=== PATIENT | female | born 1985 | race Hispanic/Latino ===

== ENCOUNTER 2018-03-20 19:15 | Emergency (ER) | payer OTHER ==
[2018-03-20] MEDS ORDERED: KETOROLAC 30 MG/ML INJ ONE (20:05)
--- NOTE | 2018-03-20 20:39 | EDPHYS ---
Physician Documentation [facility] Name: Ramonita Becerra Age: 33 yrs Sex: Female : 1985 Arrival Date: 03/20/2018 Time: 19:17 Bed 13 Private MD: CRYSTAL Physician Dayton Nevarez HPI: 03/20 19:45 This 33 yrs old Female presents to ER via Ambulatory with complaints of Knee cp Pain. 19:45 The patient presents with pain, that is acute. cp 19:45 The complaints affect the medial aspect of right knee. Context: resulted from an cp unknown cause, the patient can fully bear weight, the patient is able to ambulate, with moderate difficulty. Onset: The symptoms/episode began/occurred 2 week(s) ago. Associated signs and symptoms: Pertinent negatives calf tenderness, fever, numbness, warmth, shortness of breath. Treatment prior to arrival includes: over the counter medications, NSAIDS. The patient has been recently seen by a physician: Dr. Lee with similar presenting complaints, lab tests were done, X-rays were performed, and was referred to a specialist. 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 - Social history:: Smoking status: Patient/guardian denies using tobacco. - Ebola Screening: : Patient negative for fever greater than or equal to 101.5 degrees Fahrenheit, and additional compatible Ebola Virus Disease symptoms Patient denies exposure to infectious person Patient denies travel to an Ebola-affected area in the 21 days before illness onset No symptoms or risks identified at this time. ROS: 19:50 Constitutional: Negative for body aches, chills, fever, poor PO intake. cp 19:50 Eyes: Negative for injury, pain, redness, and discharge. cp 19:50 ENT: Negative for drainage from ear(s), ear pain, sore throat, difficulty swallowing, difficulty handling secretions. 19:50 Cardiovascular: Negative for chest pain, edema, palpitations. 19:50 Respiratory: Negative for cough, shortness of breath, wheezing. 19:50 Abdomen/GI: Negative for abdominal pain, nausea, vomiting, and diarrhea. 19:50 MS/extremity: Positive for pain, tenderness, of the medial aspect right knee, Negative for injury or acute deformity, decreased range of motion, paresthesias. 19:50 Skin: Negative for cellulitis, rash. 19:50 All other systems are negative. Exam: 19:57 Constitutional: The patient appears in no acute distress, alert, awake, non-toxic, well cp developed, well nourished. 19:57 Head/Face: Normocephalic, atraumatic. cp 19:57 Eyes: Periorbital structures: appear normal, Conjunctiva: normal, no exudate, no injection, Sclera: no appreciated abnormality, Lids and lashes: appear normal, bilaterally. 19:57 ENT: External ear(s): are unremarkable, Nose: is normal, Mouth: is normal, Posterior pharynx: is normal, airway is patent. 19:57 Neck: ROM/movement: is normal, is supple, without pain, no range of motions limitations, no nuchal rigidity. 19:57 Chest/axilla: Inspection: normal. 19:57 Cardiovascular: Rate: normal. 19:57 Respiratory: the patient does not display signs of respiratory distress, Respirations: normal, no use of accessory muscles, no retractions, no splinting, no tachypnea, labored breathing, is not present. 19:57 Abdomen/GI: Exam negative for discomfort, distension, guarding, Inspection: abdomen appears normal. 19:57 Back: pain, is absent, ROM is normal. 19:57 Musculoskeletal/extremity: Extremities: grossly normal except: noted in the medial aspect right knee distal MCL: pain, swelling, tenderness, There is no evidence of decreased ROM. 19:57 Skin: cellulitis, is not appreciated, no rash present. Vital Signs: 19:27 BP 116 / 68; Pulse 87; Resp 19; Temp 98.7; Pulse Ox 100% on R/A; Weight 74.84 kg; aj Height 5 ft. 2 in. (157.48 cm); 20:41 BP 106 / 80; Pulse 75; Resp 18; Temp 98(O); Pulse Ox 99% on R/A; ea 19:27 Body Mass Index 30.18 (74.84 kg, 157.48 cm) Procedures: 20:40 Crutch training provided to patient and/or family. Return demonstration given. cp 20:40 Splinting: Splint applied to right knee using knee immobilizer, applied by nurse. cp Examined by me, post splint application: neurovascular intact, Patient tolerated well. MDM: 19:34 Patient medically screened. [facility] 20:00 Differential diagnosis: dislocation, closed fracture, tendonitis, septic joint, cp cellulitis, DVT. 20:37 Data reviewed: vital signs, nurses notes. cp 20:37 Refusal of service: The patient/guardian displays adequate decision making capability cp and despite a detailed discussion of alternatives, benefits, risks, and consequences refuses: US to r/o DVT. ED course: VSS. Recommend RICE and f/u with ortho. 03/20 19:57 Order name: Knee Immobilizer; Complete Time: 20:13 cp 03/20 19:57 Order name: Crutches; Complete Time: 20:13 cp Administered Medications: 20:00 Drug: TORadol 60 mg Route: IM; Site: right deltoid; ea 20:41 Follow up: Response: No adverse reaction; Pain is decreased ea Disposition: 03/21 07:18 Co-signature as Attending Physician, Dayton Nevarez MD I agree with the assessment and [facility] plan of care. Disposition: 03/20/18 20:38 Discharged to Home. Impression: Pain in right knee. - Condition is Stable. - Discharge Instructions: Knee Immobilizer, Knee Pain. - Prescriptions for Anaprox DS 550 mg Oral Tablet - take 1 tablet by ORAL route every 12 hours As needed; 20 tablet. Tramadol 50 mg Oral Tablet - take 1 tablet by ORAL route every 8 hours as needed; 12 tablet. - Medication Reconciliation Form, Thank You Letter, Antibiotic Education, Prescription Opioid Use, Work release form form. - Follow up: Jj Bobo MD; When: 2 - 3 days; Reason: Recheck today's complaints. - Problem is an ongoing problem. - Symptoms have improved. Signatures: Ashia Chapa RN RN aj Anderson, Corey, MD MD cha Page, Corey, PA PA cp Antunez, Elena, RN RN ea Corrections: (The following items were deleted from the chart) 03/20 20:52 20:38 03/20/2018 20:38 Discharged to Home. Impression: Pain in right knee. Condition is ea Stable. Forms are Medication Reconciliation Form, Thank You Letter, Antibiotic Education, Prescription Opioid Use. Follow up: Jj Bobo; When: 2 - 3 days; Reason: Recheck today's complaints. Problem is an ongoing problem. Symptoms have improved. cp
--- NOTE | 2018-03-20 20:39 | ER ---
Nurse's Notes [facility] Name: Ramonita Becerra Age: 33 yrs Sex: Female : 1985 Arrival Date: 03/20/2018 Time: 19:17 Bed 13 Private MD: Diagnosis: Pain in right knee Presentation: 03/20 19:26 Presenting complaint: Patient states: Right knee pain for 2 weeks. Seen by PCP on aj Thursday and had X ray and labs done. Appointment with ortho on 04/01. Transition of care: patient was not received from another setting of care. Onset of symptoms was March 06, 2018. Risk Assessment: Do you want to hurt yourself or someone else? Patient reports no desire to harm self or others. Initial Sepsis Screen: Does the patient meet any 2 criteria? No. Patient's initial sepsis screen is negative. Does the patient have a suspected source of infection? No. Patient's initial sepsis screen is negative. Care prior to arrival: None. 19:26 Method Of Arrival: Ambulatory 19:26 Acuity: CHANNING 4 Triage Assessment: 19:27 General: Appears in no apparent distress. uncomfortable, Behavior is calm, cooperative, aj appropriate for age. Pain: Complains of pain in right knee. Neuro: Level of Consciousness is awake, alert, obeys commands, Oriented to person, place, time, situation, Appropriate for age. Respiratory: Airway is patent Respiratory effort is even, unlabored, Respiratory pattern is regular, symmetrical. Derm: Skin is intact, is healthy with good turgor, Skin is pink, warm \T\ dry. normal. Musculoskeletal: Reports pain in right knee. 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 - Social history:: Smoking status: Patient/guardian denies using tobacco. - Ebola Screening: : Patient negative for fever greater than or equal to 101.5 degrees Fahrenheit, and additional compatible Ebola Virus Disease symptoms Patient denies exposure to infectious person Patient denies travel to an Ebola-affected area in the 21 days before illness onset No symptoms or risks identified at this time. Screenin:50 Abuse screen: Denies threats or abuse. Nutritional screening: No deficits noted. ea Tuberculosis screening: No symptoms or risk factors identified. Fall Risk None identified. Assessment: 19:50 General: Appears uncomfortable, Behavior is calm, cooperative, appropriate for age. ea Pain: Complains of pain in right knee Pain currently is 8 out of 10 on a pain scale. Quality of pain is described as aching. Neuro: Level of Consciousness is awake, alert, obeys commands, Oriented to person, place, time, situation. Cardiovascular: Patient's skin is warm and dry. Respiratory: Airway is patent Respiratory effort is even, unlabored, Respiratory pattern is regular, symmetrical. GI: No signs and/or symptoms were reported involving the gastrointestinal system. : No signs and/or symptoms were reported regarding the genitourinary system. Derm: Skin is pink, warm \T\ dry. 20:50 Reassessment: Patient and/or family updated on plan of care and expected duration. Pain ea level reassessed. Patient is alert, oriented x 3, equal unlabored respirations, skin warm/dry/pink. Discharge instructions given to patient, verbalized the understanding of instruction. Patient states symptoms have improved. Vital Signs: 19:27 BP 116 / 68; Pulse 87; Resp 19; Temp 98.7; Pulse Ox 100% on R/A; Weight 74.84 kg; aj Height 5 ft. 2 in. (157.48 cm); 20:41 BP 106 / 80; Pulse 75; Resp 18; Temp 98(O); Pulse Ox 99% on R/A; ea 19:27 Body Mass Index 30.18 (74.84 kg, 157.48 cm) ED Course: 19:17 Patient arrived in ED. am2 19:27 Triage completed. aj 19:27 Arm band placed on left wrist. Patient placed in an exam room. aj 19:33 Dayton Waller PA is PHCP. cp 19:34 Dayton Nevarez MD is Attending Physician. prerna 19:34 Dayton Nevarez MD is Attending Physician. cp 19:43 Tarah Christian, PRINCESS is Primary Nurse. ea 20:32 Patient has correct armband on for positive identification. Bed in low position. Call ea light in reach. Side rails up X2. 20:38 Jj Bobo MD is Referral Physician. cp 20:41 No provider procedures requiring assistance completed. Patient did not have IV access ea during this emergency room visit. Administered Medications: 20:00 Drug: TORadol 60 mg Route: IM; Site: right deltoid; ea 20:41 Follow up: Response: No adverse reaction; Pain is decreased ea Outcome: 20:38 Discharge ordered by MD. cp 20:51 Discharged to home with crutches, with significant other. ea 20:51 Condition: improved 20:51 Discharge instructions given to patient, Instructed on discharge instructions, follow up and referral plans. medication usage, Demonstrated understanding of instructions, follow-up care, medications, Prescriptions given X 2. 20:52 Patient left the ED. ea Signatures: Ashia Chapa, RN RN Dayton Salguero MD MD cha Page, Corey, PA PA Ashia Rivers am2 Tarah Christian RN RN janet
[2018-03-20 21:03] VITALS: BP 106/80; TEMP 98; O2SAT 99
== END 2018-03-20 20:52 | disposition home or self-care (01) ==
LOC: ER 19:15
DX: M25.561 Pain in right knee (principal); Z91.040 Latex allergy status; Z91.048 Other nonmedicinal substance allergy status
CPT/HCPCS: 96372; 99283

== ENCOUNTER 2020-01-02 18:04 | Observation (INO) | payer BC ==
[2020-01-02 20:51] LABS: Absolute Lymphocytes (CBC) 1.9 K/uL (0.7-4.9); Basophils % 0.2 % (0-1.3); Hematocrit 35.9 % (36.0-45.0); Lymphocytes % 22.5 % (15.3-44.8); MPV 8.8 fL (7.6-11.3); RBC Red Blood Cell Count 4.21 M/uL (3.86-4.86)
[2020-01-02] MEDS ORDERED: ONDANSETRON 4 MG/2 ML VIAL ONE (20:53)
[2020-01-02] MEDS ORDERED: MORPHINE 4 MG/ML SYR ONE (20:53)
[2020-01-02] MEDS ORDERED: NA CHLORIDE 0.9% 1,000 ML ONE (20:53)
[2020-01-02] MEDS ORDERED: FAMOTIDINE 20 MG/2 ML VIAL IV ONE (20:53)
[2020-01-02 21:11] LABS: ALT/SGPT 25 U/L (12-78); AST/SGOT 14 U/L (15-37); Albumin 3.4 g/dL (3.4-5.0); Alkaline Phosphatase 111 U/L (45-117); BUN Blood Urea Nitrogen 10 mg/dL (7-18); Bicarbonate 26 mmol/L (21-32); Bilirubin Direct < 0.1 mg/dL (0-0.2); Bilirubin Total 0.3 mg/dL (0.2-1.0); Glucose Level 93 mg/dL (74-106); Lipase 61 U/L (73-393); Protein, Total 7.9 g/dL (6.4-8.2); Sodium Level 139 mmol/L (136-145)
[2020-01-02 22:03] LABS: Urine Blood TRACE (NEG); Urine Glucose NEGATIVE (NEG); Urine Protein NEGATIVE (NEG); Urine Specific Gravity 1.015 (1.005-1.030)
[2020-01-02] MEDS ORDERED: PIPER/TAZO/NS 3.375gm 3.375 GM/100 ML BAG ONE (22:45)
--- NOTE | 2020-01-02 22:47 | EDPHYS ---
Physician Documentation [facility] Name: Ramonita Becerra Age: 34 yrs Sex: Female : 1985 Arrival Date: 01/02/2020 Time: 18:06 Bed 26 Private MD: ED Physician Jimmie Lucero HPI: 01/01 21:05 This 34 yrs old Female presents to ER via Ambulatory with complaints of mh7 Abdominal Pain. 21:05 The patient presents with abdominal pain in the left lower quadrant. Onset: The mh7 symptoms/episode began/occurred yesterday. The symptoms radiate to the left flank. Associated signs and symptoms: Pertinent positives: nausea and vomiting, Pertinent negatives: anorexia, blood in stools, chest pain, constipation, diarrhea, dysuria, fever, headache, hematuria, palpitations, shortness of breath, vaginal discharge, vomiting blood. The symptoms are described as intermittent, vague, waxing/waning. Modifying factors: The symptoms are alleviated by nothing, the symptoms are aggravated by nothing. Severity of pain: At its worst the pain was moderate today, in the emergency department the pain has improved moderately. 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 - Social history:: Smoking status: Patient denies any tobacco usage or history of. Patient/guardian denies using alcohol, street drugs, tobacco products. ROS: 21:05 Constitutional: Negative for fever, chills, and weight loss, Eyes: Negative for injury, mh7 pain, redness, and discharge, ENT: Negative for injury, pain, and discharge, Neck: Negative for injury, pain, and swelling, Cardiovascular: Negative for chest pain, palpitations, and edema, Respiratory: Negative for shortness of breath, cough, wheezing, and pleuritic chest pain, Back: Negative for injury and pain, : Negative for injury, bleeding, discharge, and swelling, MS/Extremity: Negative for injury and deformity, Skin: Negative for injury, rash, and discoloration, Neuro: Negative for headache, weakness, numbness, tingling, and seizure, Psych: Negative for depression, anxiety, suicide ideation, homicidal ideation, and hallucinations, Allergy/Immunology: Negative for hives, rash, and allergies, Endocrine: Negative for neck swelling, polydipsia, polyuria, polyphagia, and marked weight changes, Hematologic/Lymphatic: Negative for swollen nodes, abnormal bleeding, and unusual bruising. Exam: 21:05 Constitutional: This is a well developed, well nourished patient who is awake, alert, mh7 and in no acute distress. Head/Face: Normocephalic, atraumatic. Neck: Trachea midline, no thyromegaly or masses palpated, and no cervical lymphadenopathy. Supple, full range of motion without nuchal rigidity, or vertebral point tenderness. No Meningismus. Chest/axilla: Normal chest wall appearance and motion. Nontender with no deformity. No lesions are appreciated. Cardiovascular: Regular rate and rhythm with a normal S1 and S2. No gallops, murmurs, or rubs. Normal PMI, no JVD. No pulse deficits. Respiratory: Lungs have equal breath sounds bilaterally, clear to auscultation and percussion. No rales, rhonchi or wheezes noted. No increased work of breathing, no retractions or nasal flaring. 21:05 Back: No spinal tenderness. No costovertebral tenderness. Full range of motion. Skin: Warm, dry with normal turgor. Normal color with no rashes, no lesions, and no evidence of cellulitis. MS/ Extremity: Pulses equal, no cyanosis. Neurovascular intact. Full, normal range of motion. Neuro: Awake and alert, GCS 15, oriented to person, place, time, and situation. Cranial nerves II-XII grossly intact. Motor strength 5/5 in all extremities. Sensory grossly intact. Cerebellar exam normal. Normal gait. Psych: Awake, alert, with orientation to person, place and time. Behavior, mood, and affect are within normal limits. 21:05 Abdomen/GI: Inspection: abdomen appears normal, Bowel sounds: normal, in all quadrants, Palpation: moderate abdominal tenderness, in the epigastric area and left lower quadrant, Rectal exam: the exam is deferred, because of patient request, Indicators: McBurney's point is not tender, Rivera's sign is negative, Rovsing's sign is negative, Obturator sign is negative, Psoas sign is negative, Liver: no appreciated palpable abnormalities, Hernia: not appreciated. Vital Signs: 18:32 BP 113 / 52; Pulse 95; Resp 17; Temp 98.7; Pulse Ox 100% ; Pain 5/10; ll1 21:00 BP 117 / 74; Pulse 88; Resp 17; Pulse Ox 100% on R/A; vc 22:00 BP 110 / 74; Pulse 81; Resp 16; Pulse Ox 100% on R/A; vc 23:00 BP 108 / 70; Pulse 81; Resp 18; Pulse Ox 100% on R/A; vc MDM: 20:24 Patient medically screened. [facility] 22:43 Differential diagnosis: appendicitis, non-specific abd pain, Ureterolithiasis, urinary mh7 tract infection. Data reviewed: vital signs, nurses notes, lab test result(s), CBC, electrolytes, urinalysis. Data interpreted: shelter monitor: rate is 95 beats/min, rhythm is normal sinus rhythm, regular, Interpretation: normal rate, normal rhythm, Pulse oximetry: on room air is 100 %. Interpretation: normal. Counseling: I had a detailed discussion with the patient and/or guardian regarding: the historical points, exam findings, and any diagnostic results supporting the discharge/admit diagnosis, lab results, radiology results. Response to treatment: the patient's symptoms have markedly improved after treatment. 01/01 20:26 Order name: Basic Metabolic Panel; Complete Time: 21:17 [facility] 01/01 20:26 Order name: CBC with Diff; Complete Time: 21:17 [facility] 01/01 20:26 Order name: Hepatic Function; Complete Time: 21: [facility] 01/01 20:26 Order name: Lipase; Complete Time: 21:17 [facility] 01/01 22:00 Order name: Urine Dipstick--Ancillary (enter results); Complete Time: 22:14 [facility] 01/01 22:00 Order name: Urine --Ancillary (enter results); Complete Time: 22:14 [facility] 01/01 21:18 Order name: CT Abd/Pelvis - IV Contrast Only [facility] 01/02 05:15 Order name: CBC with Automated Diff; Complete Time: 08:05 [facility] 01/02 05:34 Order name: Basic Metabolic Panel; Complete Time: 08:05 [facility] 01/02 05:34 Order name: Lipase; Complete Time: 08:05 [facility] 01/02 08:16 Order name: Lipase [facility] 01/02 09:02 Order name: CORONAVIRUS [facility] 01/02 09:07 Order name: Lipase [facility] 01/01 20:26 Order name: IV Saline Lock; Complete Time: 20:53 [facility] 01/01 20:26 Order name: Labs collected and sent; Complete Time: 20:53 [facility] 01/01 20:26 Order name: Urine Dipstick-Ancillary (obtain specimen); Complete Time: 22:06 [facility] 01/01 20:26 Order name: Urine Test (obtain specimen); Complete Time: 22:06 7 Administered Medications: 20:52 Drug: Zofran (Ondansetron) 4 mg Route: IVP; Site: left antecubital; vc 22:30 Follow up: Response: No adverse reaction vc 20:52 Drug: NS 0.9% 1000 ml Route: IV; Rate: 1000 ml; Site: left antecubital; vc 22:00 Follow up: IV Status: Completed infusion; IV Intake: 1000ml vc 20:52 Drug: Pepcid 20 mg Route: IVP; Site: left antecubital; vc 22:30 Follow up: Response: No adverse reaction vc 20:53 Drug: morphine 4 mg Route: IVP; Site: left antecubital; vc 22:30 Follow up: Response: No adverse reaction vc 23:10 Drug: Zosyn 3.375 grams Route: IVPB; Infused Over: 60 mins; Site: left antecubital; vc 23:30 Follow up: IV Status: Completed infusion; IV Intake: 100ml vc Disposition: 01/02/20 22:46 Hospitalization ordered by Huber Lee for Inpatient Admission. Preliminary diagnosis is Acut Appendicitis. - Bed requested for [facility] ER HOLD. - Status is Inpatient Admission. ss - Condition is Stable. - Problem is new. - Symptoms have improved. Signatures: Dispatcher [employer] Dayton Bullock MD MD cha Smirch, Shelby, RN RN ss Garcia, Cindy, RN RN cg Sweetie Redman RN RN vc Lewis, Lynsay, RN RN ll1 Jimmie Lucero MD MD 7 Corrections: (The following items were deleted from the chart) 23:08 22:46 Hospitalization Ordered by Huber Lee MD for Inpatient Admission. Preliminary cg diagnosis is Acut Appendicitis. Bed requested for Telemetry/MedSurg (Inpatient). Status is Inpatient Admission. Condition is Stable. Problem is new. Symptoms have improved. mh7 01/02 09:58 01/01 23:08 01/02/2020 22:46 Hospitalization Ordered by A Jesus DIAZ for Inpatient ss Admission. Preliminary diagnosis is Acut Appendicitis. Bed requested for [facility] ER HOLD. Status is Inpatient Admission. Condition is Stable. Problem is new. Symptoms have improved. cg 01/02 10:04 09:58 01/02/2020 22:46 Hospitalization Ordered by A Jesus DIAZ for Inpatient Admission. ss Preliminary diagnosis is Acut Appendicitis. Bed requested for [facility] ER HOLD. Status is Inpatient Admission. Condition is Stable. Problem is new. Symptoms have improved. ss 12:14 10:04 01/02/2020 22:46 Hospitalization Ordered by A Jesus DIAZ for Inpatient Admission. ss Preliminary diagnosis is Acut Appendicitis. Bed requested for [facility] ER HOLD. Status is Inpatient Admission. Condition is Stable. Problem is new. Symptoms have improved. ss
--- NOTE | 2020-01-02 22:47 | ER ---
Nurse's Notes [facility] Name: Ramonita Becerra Age: 34 yrs Sex: Female : 1985 Arrival Date: 01/02/2020 Time: 18:06 Bed 26 Private MD: Diagnosis: Acut Appendicitis Presentation: 01/01 18:32 Chief complaint: Patient states: Lower abdominal pain since yesterday. 1 vomitus ll1 yesterday, none today. Fever 100 last night. No vaginal bleeding or discharge. Coronavirus screen: Proceed with normal triage. Patient denies a cough. Patient denies shortness of breath or difficulty breathing. Patient reports a measured and/or subjective temperature greater than 100.4F. Patient denies travel on a cruise ship or to a country the [facility] currently lists as an affected area. Patient denies contact with known and/or suspected case of COVID-19. Ebola Screen: Patient denies travel to an Ebola-affected area in the 21 days before illness onset. Initial Sepsis Screen: Does the patient meet any 2 criteria? HR > 90 bpm. No. Patient's initial sepsis screen is negative. Risk Assessment: Do you want to hurt yourself or someone else? Patient reports no desire to harm self or others. Onset of symptoms was January 01, 2020. 18:32 Method Of Arrival: Ambulatory ll1 18:32 Acuity: CHANNING 3 ll1 20:00 Initial Sepsis Screen: Does the patient have a suspected source of infection? No. vc Patient's initial sepsis screen is negative. [employer]: 20:35 LMP N/A - control method vc Historical: - Allergies: 18:34 Latex, Natural Rubber; ll1 - PMHx: 18:34 narcolepsy; Anxiety; ll1 - PSHx: 18:34 ; ll1 - Immunization history:: Flu vaccine is up to date. - Social history:: Smoking status: Patient denies any tobacco usage or history of. Patient/guardian denies using alcohol, street drugs, tobacco products. Screenin:00 Abuse screen: Denies threats or abuse. Nutritional screening: No deficits noted. vc Tuberculosis screening: No symptoms or risk factors identified. Fall Risk None identified. Assessment: 20:00 General: Appears in no apparent distress. uncomfortable, Behavior is calm, cooperative, vc appropriate for age. Pain: Complains of pain in epigastric area and left lower quadrant Pain radiates to back Pain currently is 5 out of 10 on a pain scale. Quality of pain is described as sharp, shooting, stabbing. Neuro: Level of Consciousness is awake, alert, obeys commands, Oriented to person, place, time, situation, Appropriate for age. Cardiovascular: Capillary refill < 3 seconds Patient's skin is warm and dry. Respiratory: Respiratory effort is even, unlabored, Respiratory pattern is regular, symmetrical. GI: Bowel sounds present X 4 quads. Abd is soft Abdomen is tender to palpation X 4 quads. : No signs and/or symptoms were reported regarding the genitourinary system. Derm: Skin is intact, is healthy with good turgor, Skin temperature is warm. Musculoskeletal: Circulation, motion, and sensation intact. Range of motion: intact in all extremities. 21:00 Reassessment: Patient appears in no apparent distress at this time. Patient and/or vc family updated on plan of care and expected duration. Pain level reassessed. Patient is alert, oriented x 3, equal unlabored respirations, skin warm/dry/pink. 22:00 Reassessment: Patient appears in no apparent distress at this time. Patient and/or vc family updated on plan of care and expected duration. Pain level reassessed. Patient is alert, oriented x 3, equal unlabored respirations, skin warm/dry/pink. 23:00 Reassessment: Patient appears in no apparent distress at this time. Patient and/or vc family updated on plan of care and expected duration. Pain level reassessed. Patient is alert, oriented x 3, equal unlabored respirations, skin warm/dry/pink. 23:45 Reassessment: Patient appears in no apparent distress at this time. Patient and/or vc family updated on plan of care and expected duration. Pain level reassessed. Patient is alert, oriented x 3, equal unlabored respirations, skin warm/dry/pink. Please see [employer] for further documentation. Patient states symptoms have improved. 01/02 09:45 Reassessment: Pt left to go to OR. Vital Signs: 01/01 18:32 BP 113 / 52; Pulse 95; Resp 17; Temp 98.7; Pulse Ox 100% ; Pain 5/10; ll1 21:00 BP 117 / 74; Pulse 88; Resp 17; Pulse Ox 100% on R/A; vc 22:00 BP 110 / 74; Pulse 81; Resp 16; Pulse Ox 100% on R/A; vc 23:00 BP 108 / 70; Pulse 81; Resp 18; Pulse Ox 100% on R/A; vc ED Course: 18:06 Patient arrived in ED. fj1 18:34 Triage completed. ll1 18:34 Arm band placed on Patient notified of wait time. ll1 19:59 Jimmie Lucero MD is Attending Physician. mh7 20:00 Patient has correct armband on for positive identification. Pulse ox on. NIBP on. vc 20:11 Sweetie Redman, PRINCESS is Primary Nurse. vc 21:46 CT Abd/Pelvis - IV Contrast Only In Process Unspecified. EDMS 21:50 Urine collected: clean catch specimen, clear, jacki colored. jp3 22:45 Huber Lee MD is Hospitalizing Provider. 7 23:45 No provider procedures requiring assistance completed. Patient admitted, IV remains in vc place. Administered Medications: 20:52 Drug: Zofran (Ondansetron) 4 mg Route: IVP; Site: left antecubital; vc 22:30 Follow up: Response: No adverse reaction vc 20:52 Drug: NS 0.9% 1000 ml Route: IV; Rate: 1000 ml; Site: left antecubital; vc 22:00 Follow up: IV Status: Completed infusion; IV Intake: 1000ml vc 20:52 Drug: Pepcid 20 mg Route: IVP; Site: left antecubital; vc 22:30 Follow up: Response: No adverse reaction vc 20:53 Drug: morphine 4 mg Route: IVP; Site: left antecubital; vc 22:30 Follow up: Response: No adverse reaction vc 23:10 Drug: Zosyn 3.375 grams Route: IVPB; Infused Over: 60 mins; Site: left antecubital; vc 23:30 Follow up: IV Status: Completed infusion; IV Intake: 100ml vc Intake: 22:00 IV: 1000ml; Total: 1000ml. vc 23:30 IV: 100ml; Total: 1100ml. vc Outcome: 22:46 Decision to Hospitalize by Provider. 7 23:45 Admitted to ER Hold. Please see [facility] for further documentation. vc 23:45 Condition: good 23:45 Instructed on the need for admit. 01/02 12:14 Patient left the ED. Signatures: Dispatcher [employer] EDAlexia Johnson, RN RN Cj Hayes jp3 Sweetie Redman RN RN Don Morrison1 Tami Moncada RN RN ah Lewis, Lynsay, RN RN ll1 Jimmie Lucero MD MD mh7
[2020-01-02] MEDS ORDERED: MORPHINE 4 MG/ML SYR IV PRN (22:49)
[2020-01-02] MEDS ORDERED: ONDANSETRON 4 MG/2 ML VIAL IV PRN (22:49)
[2020-01-02] MEDS ORDERED: D5 0.45 NS 1,000 ML IV SCH (23:00)
[2020-01-03] MEDS ORDERED: ONDANSETRON 4 MG/2 ML VIAL ONE ×3 (00:12→11:24)
[2020-01-03] MEDS ORDERED: MORPHINE 4 MG/ML SYR ONE (00:12)
[2020-01-03] MEDS ORDERED: D5 0.45 NS 1,000 ML IV ONE (00:13)
[2020-01-03] MEDS ORDERED: PIPER/TAZO/NS 3.375gm 3.375 GM/100 ML BAG IVPB SCH ×3 (01:00→10:00)
[2020-01-03 01:30] VITALS: BMI 32.9
[2020-01-03 05:14] LABS: Absolute Lymphocytes (CBC) 1.6 K/uL (0.7-4.9); Basophils % 0.2 % (0-1.3); Hematocrit 32.2 % (36.0-45.0); Lymphocytes % 20.8 % (15.3-44.8); MPV 8.8 fL (7.6-11.3); RBC Red Blood Cell Count 3.76 M/uL (3.86-4.86)
[2020-01-03 05:33] LABS: BUN Blood Urea Nitrogen 9 mg/dL (7-18); Bicarbonate 24 mmol/L (21-32); Glucose Level 126 mg/dL (74-106); Lipase 1744 U/L (73-393); Potassium 3.8 mmol/L (3.5-5.1); Sodium Level 140 mmol/L (136-145)
[2020-01-03] MEDS ORDERED: Ringers Lactate 1,000 ML IV ONE (09:16)
[2020-01-03] MEDS ORDERED: LIDOCAINE 2% MPF 5 ML VIAL ONE (09:36)
[2020-01-03] MEDS ORDERED: FENTANYL CITR 100 MCG/2 ML ONE (09:36)
[2020-01-03] MEDS ORDERED: dexAMETHasone 10 MG/ML VIAL ONE (09:36)
[2020-01-03] MEDS ORDERED: MIDAZOLAM HCL 2 MG/2 ML INJ ONE (09:36)
[2020-01-03] MEDS ORDERED: propofoL 200 MG/20 ML VIAL IV ONE (09:36)
[2020-01-03] MEDS ORDERED: ROCURONIUM 50 MG/5 ML VIAL IV ONE (09:37)
[2020-01-03] MEDS ORDERED: GLYCOPYRROLATE 0.2 MG/ML SYR ONE (10:29)
[2020-01-03] MEDS ORDERED: KETOROLAC 30 MG/ML INJ ONE (10:29)
[2020-01-03] MEDS ORDERED: NEOSTIGMINE 1 MG/ML -5 ML ONE (10:30)
--- NOTE | 2020-01-03 10:37 | PREOPCON ---
Date of Consultation: 01/02/2020 Reason For Consultation: Abdominal pain. History Of Present Illness: The patient is a 34-year-old female, who presents with 2-day history of periumbilical abdominal pain and lower abdominal pain associated nausea and vomiting on Thursday, anore javier, low-grade temperature on Thursday. No sore throat, runny nose, cough, headaches, or dizziness. N o chest pain. No diarrhea or constipation. No blood in her stool. No dysuria or hematuria. Last m enstrual period was 2-3 weeks ago was normal. Review of Systems: Otherwise unremarkable. Past Medical History: Negative. Past Surgical History: Negative. Allergies: NO ALLERGY. Social History: The patient does not smoke or drink. Family History: Significant for diabetes and hypertension. Physical Examination: Vital Signs: Stable. She is afebrile. General: She is awake, alert, and oriented x3. Head and Neck: Cranial nerves 2 through 12 grossly within normal limits. No neck masses. No JVD. Throat clear. Neck is supple. Chest: Clear. Heart: S1 and S2. Abdomen: Soft, nondistended. Positive bowel sounds. Positive lower left tenderness and rebound. N o rigidity or guarding. Most tender is just below the umbilicus to the left side. Extremities: Adequately perfused. Nontender. Neuro: Nonfocal. Laboratory Data: White count is normal. CT of the abdomen and pelvis reviewed with the radiologist. The patient does have abnormal location of the cecum at the midline with the appendix tilted toward the left side. There is an acute inflammation and no abscess. No perforation. No free air. There is also a 2.2 corpus luteum cyst on the ovary. Assessment: Acute appendicitis. Plan: Admit, n.p.o., IV fluid, IV antibiotic, to the OR for lap appy possible open. The patient und erstands the risks, benefits, alternatives and agrees to procedure. /MODL Voice ID: [id number] Report ID: [id number]
[2020-01-03] MEDS: HYDROMORPHONE HCL 1 MG/ML INJ ONE ×4 (11:13→11:55)
[2020-01-03 15:05] VITALS: TEMP 97.9
[2020-01-03 15:06] VITALS: O2SAT 100
[2020-01-03 15:07] VITALS: BP 118/68
--- NOTE | 2020-01-03 20:25 | OP ---
Date of Procedure: 01/03/2020 Surgeon: Tip Mane MD Preoperative Diagnosis: Acute appendicitis. Postoperative Diagnosis: Acute appendicitis. Procedure Performed: Laparoscopic appendectomy. Estimated Blood Loss: Minimal. Specimen: Appendix. Findings: As above. Anesthesia: General. Complications: None. Disposition: The patient tolerated the procedure in stable condition, taken to Recovery in good gene ral condition. Procedure In Detail: The patient was brought to the OR and placed in supine position. General anest hesia was begun. The patient was prepped and draped in usual sterile fashion. Marcaine 0.5% was inf iltrated locally. A 15 blade was used to make a 1 cm supraumbilical midline incision. Subcutaneous tissue was divided. Fascia was identified and divided. A #1 Vicryl stay suture was placed. Periton eal cavity was entered with blunt dissection. A 12 mm trocar was placed into the peritoneal cavity u nder direct vision. Pneumoperitoneum was established. Then, two 5 mm trocars were placed, one in th e suprapubic region, one in the left lower quadrant. Laparoscopy revealed injected dilated appendix consistent with early acute appendicitis. There was some serous fluid in the cul-de-sac, which was a spirated. Tubes, ovary, and uterus looked normal. Remainder of the small bowel and large bowel appe ared normal. The gallbladder was slightly distended, liver was within normal limits, and peritoneal surfaces were otherwise normal. Then, Endo-RACHELLE stapling device was used to divide the base of the ap pendix and the mesoappendix, and the appendix was retrieved through the umbilicus via an EndoCatch ba g. The cecum was somewhat toward the midline with the appendix leading toward the left side. Other than that, everything else was within normal limits and the appendix was retrieved, sent to Pathology . Then, the entire peritoneal cavity was examined. No evidence of bleeding or bowel injury apprecia elizabeth. All trocars were removed under direct vision. Stay sutures were tied to each other across the fascial defect. Subcutaneous wounds were irrigated. Bleeding controlled with cautery. 3-0 chromic used to approximate the subcutaneous tissue and close the skin. Sterile dressing was applied. The p atient was awakened and taken to Recovery in good general condition. /MODL Voice ID: [id number] Report ID: [id number]
--- NOTE | 2020-01-04 03:05 | SS ---
Date of Discharge: 01/03/2020 Chief Complaint: Abdominal pain. History Of Present Illness: A 34-year-old female patient, who started to have abdominal pain, fever, nausea, vomiting day before yesterday. The patient reported that her pain was 10/10. Her pain gets worse when she gets up and moves around. Yesterday, her pain got better, but still it was 5/10 on a pain scale. Denies any constipation or diarrhea. She called office yesterday and I visited with he r via tele-visit and I advised her to come to emergency room as I was concerned about some acute surg ical abdominal problem and she agreed to come to ER. ER physician was contacted and details were dis cussed. Evaluation was requested. After the patient was evaluated, she was admitted to the hospital with acute appendicitis without any complication. I saw her this morning. [facility] Overall, she was feeling better. IV antibiotic and pain medication were given overnigh t. Allergies: TO LATEX. Medications: She does not take any medications at home. Current medication list reviewed. Review of Systems: Constitutional: As mentioned above. GI: As mentioned above. All other systems reviewed and negative. Past Medical History: Significant for hyperlipidemia, hemangioma of liver, narcolepsy with cataplexy , obstructive sleep apnea, and anxiety. Past Surgical History: Breast augmentation, , and abdominoplasty. Family History: Significant for father and mother with hypertension and diabetes. Social History: Negative for smoking and alcohol use. Physical Examination: Vital Signs: Temperature 98, pulse 98, respiratory rate 16, blood pressure 112/73, oxygen saturation 100%. Height 5 feet 2 inches, weight 180 pounds. General: Awake, alert, oriented, not in distress. HEENT: Head atraumatic, normocephalic. Conjunctivae nonerythematous. Sclerae white. Mouth, no thr ush or edema noted. Ears/Nose, no mass, lesion, discharge noted. Neck: Supple. No JVD, lymph nodes, bruit, thyromegaly noted. Lungs: Bilateral good equal air entry. Clear to auscultation. No rhonchi. No rales. Heart: Normal heart sounds, no murmur or gallop. Abdomen: Soft, not distended. Presence of guarding and tenderness in the lower abdomen in midline a s well as left to the midline. No rebound tenderness. Extremities: No leg edema. No calf tenderness. Skin: No rash, ulcer, cellulitis. Lymphatics: No lymph node enlargement in neck, supraclavicular, infraclavicular region. Neuro: No focal neurological deficit. Chest: Unremarkable. External Genitalia: Deferred. Rectal: Deferred. Laboratory Data: Yesterday, white count 8.3, hemoglobin 12, platelets 218. Repeat white count today 7.9, hemoglobin 10.7, platelets 206. Initial sodium 139, potassium 4, chloride 106, bicarb 26, BUN 10, creatinine 0.59, glucose 93. Liver function tests unremarkable. Lipase 61. Repeat lipase this morning 1744. Calcium level this morning 7.6. Urinalysis negative. Urine test negative. CAT scan of abdomen shows findings consistent with acute early appendicitis without any complication , 2.2 cm right ovarian corpus luteum cyst, and her liver shows about 9 mm hypodensity lesion. Hospital Course: After the patient was admitted to the hospital, she was started on IV fluid, IV ant ibiotic, pain medications. Details were discussed with general surgeon, Dr. Mane, who took the snehal ent to operating room today and performed appendectomy. After surgery, the patient remained stable. Dr. Mane provided her with prescription for pain medication for p.r.n. use and the patient tolerate d diet very well and Dr. Mane has released her to go home from surgical point of view. Medically, s he is stable for discharge. The patient will follow up with Dr. Mane next week. Discharge Medications And Instructions: The patient to take pain medication as prescribed by Dr. Mandeep alas. Augmentin 875 mg 2 times a day for 1 week was prescribed to her and the patient to follow up wit h Dr. Mane next week. Final Diagnoses: 1.Acute appendicitis. 2.Anemia, unspecified. 3.Hypocalcemia. JOY/MODL Voice ID: [id number] Report ID: [id number]
--- NOTE | 2020-01-04 08:22 | RAD REPORT ---
EXAM DESCRIPTION: CT ABDOMEN PELVIS WITH IV CONTRAST CLINICAL HISTORY: ABD PAIN TECHNIQUE: Contiguous axial images obtained through the abdomen and pelvis following the uneventful administration of IV contrast. Coronal and sagittal reformatted images were provided. This exam was performed according to our departmental dose-optimization program, which includes autom ated exposure control, adjustment of the mA and/or kV according to patient size and/or use of iterati ve reconstruction technique. COMPARISON: None available for comparison. FINDINGS: Lung bases: Clear Liver: 9 mm hypodensity at the right hepatic dome which cannot be fully characterized. Gallbladder and biliary system: Unremarkable Pancreas: Unremarkable Spleen: Unremarkable Adrenals: Unremarkable Kidneys: Normal renal cortical enhancement. No calculi. No hydronephrosis. Bowel: Moderate stool within the proximal large bowel. No obstruction. No appreciable mucosal thicken ing. Appendix: The appendix courses into the left abdomen and measures 9 mm in maximum diameter. Subtle in filtrative changes in the surrounding mesentery. Urinary bladder: Unremarkable Reproductive: 2.2 cm right ovarian corpus luteal cyst. The uterus and left ovary are unremarkable as visualized. Lymph nodes: No pathologically enlarged lymph nodes. Peritoneum: Minimal free fluid in the right paracolic gutter, right adnexal region and cul-de-sac. No free air. Vessels: No abdominal aortic aneurysm. Abdominal wall: Tiny fat-containing umbilical hernia. Bones: Intact IMPRESSION: 1. Findings which may represent early acute appendicitis. 2. 2.2 cm right ovarian corpus luteum cyst. No follow-up imaging is recommended. Reference: J Am Co ll Radiol 2013;10:675-681 3. Other findings as above. THIS REPORT CONTAINS FINDINGS THAT MAY BE CRITICAL TO PATIENT CARE: The findings were verbally discu ssed via telephone conference with JOSELYN Yoder, on 01/02/2020 10:13 PM CDT. The results were a cknowledged and understood. Electronically signed by: Kim Bauer MD 01/02/2020 10:15 PM CDT Due to temporary technical issues with the PACS/Fluency reporting system, reports are being signed by the in house radiologist without review as a courtesy to ensure prompt reporting. The interpreting r adiologist is fully responsible for the content of the report.
== END 2020-01-03 14:15 | disposition home or self-care (01) ==
LOC: ER 18:04 → ERHOLD 22:52 → INTOOBSV 22:52
PROVIDERS: ADMIT Internal Medicine; ATTEND Internal Medicine
PROC: 0DTJ4ZZ Resection of Appendix, Percutaneous Endoscopic Approach (ICD-10-PCS; principal; 2020-01-03 09:30)
DX: K35.80 Unspecified acute appendicitis (principal); D64.9 Anemia, unspecified; E83.51 Hypocalcemia; Z11.59 Encounter for screening for other viral diseases; N83.11 Corpus luteum cyst of right ovary; K42.9 Umbilical hernia without obstruction or gangrene
CPT/HCPCS: 44970; 96365; 96361; 85025 ×2; 80048 ×2; 36415; 81025; 80076; 88304; 81003; 83690 ×3; 74177; 96375; 99285; U0002; Q9967; J2704; J2250; J3010; J2543 ×2; J1100; J1170 ×2; J2710; G0378 ×3; J7799; J7120; J7030; J2405 ×4

== ENCOUNTER 2020-01-12 22:42 | Inpatient (IN) | payer BC ==
--- OUTSIDE RECORDS SUMMARY | 2020-01-12 22:43 | XMS REPORT | Continuity of Care Document ---
:1985 Author Organization [facility] t Address [address] [place] [address] Dr. Nguyen [address] [place] [address] Care Team Providers Name Role Phone Lab, Fam Pob I Attending Clinician Unavailable Problems This patient has no known problems. Allergies, Adverse Reactions, Alerts This patient has no known allergies or adverse reactions. Medications This patient has no known medications. Procedures This patient has no known procedures. Encounters Start End Encounter Admission Attending Care Care Encounter Source Date/Time Date/Time Type Type Clinicians Facility Department ID 2020-01-08 2020-01-08 Laboratory Lab, [facility] [id number] 10:16:27 10:36:27 Only Fam Pob I [facility] [id number] [place] [id number] [facility] [id number] [address]al [address] Results This patient has no known results.
[2020-01-12] MEDS ORDERED: NA CHLORIDE 0.9% 3,000 ML ONE (23:32)
[2020-01-13 00:10] LABS: Absolute Lymphocytes (CBC) 1.4 K/uL (0.7-4.9); Basophils % 0.1 % (0-1.3); Hematocrit 36.8 % (36.0-45.0); MPV 9.1 fL (7.6-11.3); RBC Red Blood Cell Count 4.35 M/uL (3.86-4.86)
[2020-01-13 00:22] LABS: Protime INR 1.03
[2020-01-13 00:42] LABS: ALT/SGPT 24 U/L (12-78); AST/SGOT 21 U/L (15-37); Albumin 3.4 g/dL (3.4-5.0); Alkaline Phosphatase 93 U/L (45-117); BUN Blood Urea Nitrogen 11 mg/dL (7-18); Bicarbonate 24 mmol/L (21-32); Bilirubin Direct < 0.1 mg/dL (0-0.2); Bilirubin Total 0.2 mg/dL (0.2-1.0); Creatine Phosphokinase 35 U/L (26-192); Glucose Level 102 mg/dL (74-106); Potassium 3.5 mmol/L (3.5-5.1); Sodium Level 138 mmol/L (136-145); Troponin (Emerg Dept Use Only) < 0.02 ng/mL (0.0-0.045)
--- NOTE | 2020-01-13 00:45 | ER ---
Nurse's Notes [facility] Name: Ramonita Becerra Age: 34 yrs Sex: Female : 1985 Arrival Date: 01/12/2020 Time: 22:45 Bed 20 Private MD: Diagnosis: Pneumonia due to other specified infectious organisms Presentation: 01/11 22:52 Chief complaint: Patient states: "I had my appendix reproved last Thursday, ( January 02) vc and they swabbed me for COVID which came up negative, when I was released Thursday I started running a fever, having the chills, and a cough. I was retested Thursday and I was still negative. Today I'm having trouble keeping my fever down. It was 102.7 today, and I still have the chills, and a cough. They did a chest xray when I was here last and it showed I had pneumonia.". Coronavirus screen: Patient reports a cough. Patient denies shortness of breath or difficulty breathing. Patient reports a measured and/or subjective temperature greater than 100.4F. Patient denies travel on a cruise ship or to a country the [facility] currently lists as an affected area. Patient denies contact with known and/or suspected case of COVID-19. Patient instructed to continue to wear a mask when interacting with others. Patient moved to private room, placed in contact and droplet isolation with eye protection until further assessment. Prior COVID test collected on: January 02, and January 07. Ebola Screen: No symptoms or risks identified at this time. Risk Assessment: Do you want to hurt yourself or someone else? Patient reports no desire to harm self or others. Onset of symptoms was January 06, 2020. 22:52 Method Of Arrival: Ambulatory vc 22:52 Acuity: CHANNING 3 vc 22:52 Initial Sepsis Screen: Does the patient meet any 2 criteria? Systolic BP < 90 mmHg. No. vc Patient's initial sepsis screen is negative. Does the patient have a suspected source of infection? Yes: Productive cough/pneumonia. Triage Assessment: 22:50 General: Appears in no apparent distress. uncomfortable, ill, Behavior is calm, vc cooperative, appropriate for age. Pain: Denies pain. 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 - Social history:: Smoking status: unknown. Screenin:06 Abuse screen: Denies threats or abuse. Nutritional screening: No deficits noted. vc Tuberculosis screening: No symptoms or risk factors identified. Fall Risk None identified. Assessment: 23:30 General: Appears in no apparent distress. Behavior is calm, cooperative, appropriate wh for age. Pain: Denies pain. Neuro: Level of Consciousness is awake, alert, obeys commands, Oriented to person, place, time, situation, Appropriate for age. Cardiovascular: Capillary refill < 3 seconds. Respiratory: Reports cough that is Airway is patent Respiratory effort is even, unlabored, Respiratory pattern is regular, symmetrical. GI: Abdomen is flat, non-distended. : No signs and/or symptoms were reported regarding the genitourinary system. EENT: No signs and/or symptoms were reported regarding the EENT system. Derm: Skin is intact, is healthy with good turgor, Skin is pink, warm \\T\\ dry. normal. Musculoskeletal: Circulation, motion, and sensation intact. 01/12 00:35 Reassessment: Patient appears in no apparent distress at this time. No changes from previously documented assessment. Patient and/or family updated on plan of care and expected duration. Pain level reassessed. Patient is alert, oriented x 3, equal unlabored respirations, skin warm/dry/pink. 01:41 Reassessment: Patient appears in no apparent distress at this time. No changes from previously documented assessment. Patient and/or family updated on plan of care and expected duration. Pain level reassessed. Patient is alert, oriented x 3, equal unlabored respirations, skin warm/dry/pink. Vital Signs: 01/11 22:52 BP 89 / 64; Pulse 87; Resp 18; Temp 99.6(O); Pulse Ox 96% on R/A; Weight 79.38 kg; vc Height 5 ft. 2 in. (157.48 cm); Pain 0/10; 01/12 00:06 BP 91 / 61; Pulse 92; Resp 18; Pulse Ox 100% on R/A; wh 00:30 BP 107 / 62; Pulse 110; Resp 18; Pulse Ox 100% on R/A; 01:45 BP 105 / 65; Pulse 104; Resp 18; Temp 99.6; Pulse Ox 100% on R/A; 01/11 22:52 Body Mass Index 32.01 (79.38 kg, 157.48 cm) vc ED Course: 01/11 22:45 Patient arrived in ED. cl3 22:47 Dayton Waller PA is PHCP. cp 22:47 Jimmie Lucero MD is Attending Physician. cp 22:49 Kong Valdivia is Primary Nurse. 23:00 Triage completed. vc 23:30 Inserted saline lock: 22 gauge in left antecubital area, using aseptic technique. Blood wh collected. 23:44 Chest Single View XRAY In Process Unspecified. EDMT 01/12 00:06 Patient has correct armband on for positive identification. Bed in low position. Call light in reach. Side rails up X 1. panel monitor on. Pulse ox on. NIBP on. 00:06 Arm band placed on right wrist. 00:43 Omari Lee MD is Hospitalizing Provider. cp 01:44 No provider procedures requiring assistance completed. IV discontinued, intact, bleeding controlled, No redness/swelling at site. Administered Medications: 00:01 Drug: NS 0.9% (30 ml/kg) 30 ml/kg Route: IV; Rate: bolus; Site: left antecubital; 01:20 Follow up: Response: No adverse reaction; IV Status: Completed infusion 01:08 Drug: LevaQUIN 750 mg Volume: 150 ml; Route: IVPB; Infused Over: 90 mins; Site: left antecubital; 02:13 Follow up: Response: No adverse reaction; IV Status: Completed infusion Outcome: 00:44 Decision to Hospitalize by Provider. cp 01:44 Admitted to Tele accompanied by tech, via stretcher, room 404, with chart, Report called to Guero Gibson RN 01:44 Condition: stable 01:44 Instructed on the need for admit. 02:20 Patient left the ED. Signatures: Dispatcher [employer] EDMT Dayton Waller PA PA cp Kong Valdivia Fernando Hui cl3 Sweetie Redman RN RN vc
--- NOTE | 2020-01-13 00:45 | EDPHYS ---
Physician Documentation [facility] Name: Ramonita Becerra Age: 34 yrs Sex: Female : 1985 Arrival Date: 01/12/2020 Time: 22:45 Bed 20 Private MD: ED Physician Jimmei Lucero HPI: 01/11 22:55 This 34 yrs old Female presents to ER via Ambulatory with complaints of Fever. cp 22:55 The patient reports fever, 102.7 today. cp 22:55 Onset: The symptoms/episode began/occurred last week. Associated signs and symptoms: cp Pertinent positives: cough, shortness of breath, Pertinent negatives: abdominal pain, diarrhea, headache, vomiting. Severity of symptoms: in the emergency department the symptoms are unchanged despite home interventions. Patient reports having appendectomy performed w/o complications on January 01. Started to have cough and fever this past Thursday. Tested negative for COVID-19 twice and is currently taking oral Zithromax prescribed by DR Lee. 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 - Social history:: Smoking status: unknown. ROS: 23:00 Constitutional: Negative for fever. cp 23:00 Eyes: Negative for injury, pain, redness, and discharge. cp 23:00 ENT: Negative for ear pain, difficulty swallowing, difficulty handling secretions. 23:00 Cardiovascular: Negative for chest pain. 23:00 Respiratory: Positive for cough, shortness of breath. 23:00 Abdomen/GI: Negative for abdominal pain, nausea, vomiting, and diarrhea. 23:00 Skin: Negative for rash. 23:00 Neuro: Negative for altered mental status, headache. 23:00 All other systems are negative. Exam: 23:05 Constitutional: The patient appears in no acute distress, alert, awake, cp non-diaphoretic, non-toxic, well developed, well nourished. 23:05 Head/Face: Normocephalic, atraumatic. cp 23:05 Eyes: Periorbital structures: appear normal, Conjunctiva: normal, no exudate, no injection, Sclera: no appreciated abnormality, Lids and lashes: appear normal, bilaterally. 23:05 ENT: External ear(s): are unremarkable, Nose: is normal, Mouth: Lips: moist, Oral mucosa: moist, Posterior pharynx: Airway: no evidence of obstruction, patent. 23:05 Neck: ROM/movement: is normal, is supple, without pain, no range of motions limitations, no meningismus. 23:05 Chest/axilla: Inspection: normal, Palpation: is normal, no crepitus, no tenderness. 23:05 Cardiovascular: Rate: normal, Rhythm: regular, Edema: is not appreciated, JVD: is not appreciated. 23:05 Respiratory: the patient does not display signs of respiratory distress, Respirations: labored breathing, is not present, accessory muscle usage, is absent, intercostal retractions, that is mild, Breath sounds: bronchial sounds, that are mild, are heard diffusely, stridor, is not appreciated, wheezing: is not appreciated. 23:05 Abdomen/GI: Inspection: abdomen appears normal, Bowel sounds: active, all quadrants, Palpation: abdomen is soft and non-tender, in all quadrants, rebound tenderness, is not appreciated, involuntary guarding, is not appreciated. 23:05 Back: pain, is absent, ROM is normal. 23:05 Skin: no rash present. 23:05 Neuro: Orientation: to person, place \T\ time. Mentation: is normal. 01/12 00:01 ECG was reviewed by the Attending Physician. cp Vital Signs: 01/11 22:52 BP 89 / 64; Pulse 87; Resp 18; Temp 99.6(O); Pulse Ox 96% on R/A; Weight 79.38 kg; vc Height 5 ft. 2 in. (157.48 cm); Pain 0/10; 01/12 00:06 BP 91 / 61; Pulse 92; Resp 18; Pulse Ox 100% on R/A; wh 00:30 BP 107 / 62; Pulse 110; Resp 18; Pulse Ox 100% on R/A; wh 01:45 BP 105 / 65; Pulse 104; Resp 18; Temp 99.6; Pulse Ox 100% on R/A; wh 01/11 22:52 Body Mass Index 32.01 (79.38 kg, 157.48 cm) vc MDM: 01/11 22:49 Patient medically screened. cp 23:20 Differential diagnosis: viral Infection, bacterial infection, bronchitis, pneumonia cp UTI, meningitis, COVID-19, pulmonary embolism. 01/12 00:42 Data reviewed: vital signs, nurses notes, lab test result(s), EKG, radiologic studies, cp plain films, I have discussed the patient's presentation/case with the attending Emergency Department Physician; and as a result, I will admit patient. Test interpretation: by ED physician or midlevel provider: ECG. Response to treatment: the patient's symptoms have mildly improved after treatment. 01/11 22:59 Order name: Ptt, Activated cp 01/11 22:59 Order name: Basic Metabolic Panel; Complete Time: 00:43 cp 01/12 00:43 Interpretation: Normal except: GFR 77; CA 8.0. cp 01/11 22:59 Order name: Blood Culture Adult (2) cp 01/11 22:59 Order name: CBC with Diff; Complete Time: 00:29 cp 01/12 00:29 Interpretation: Normal except: WBC 6.8; LAMBERT% 74.8. cp 01/11 22:59 Order name: CPK; Complete Time: 00:43 cp 01/11 22:59 Order name: Lactate; Complete Time: 00:29 cp 01/11 22:59 Order name: LFT's; Complete Time: 00:43 cp 01/11 22:59 Order name: Procalcitonin; Complete Time: 04:38 cp 01/11 22:59 Order name: Protime (+inr); Complete Time: 00:41 cp 01/11 22:59 Order name: Troponin (emerg Dept Use Only); Complete Time: 00:43 cp 01/11 22:59 Order name: Urine Microscopic Only; Complete Time: 04:38 cp 01/11 22:59 Order name: DD; Complete Time: 00:41 cp 01/11 22:59 Order name: COVID-19 cp 01/11 22:59 Order name: Flu; Complete Time: 04:38 cp 01/11 22:59 Order name: Chest Single View XRAY cp 01/11 22:59 Order name: Accucheck; Complete Time: 00:01 cp 01/11 22:59 Order name: Strep; Complete Time: 04:38 cp 01/11 23:00 Order name: PTT, Activated Partial Thromb; Complete Time: 00:41 EDMS 01/12 00:05 Order name: Glucose, Ancillary Testing; Complete Time: 00:29 EDMS 01/12 00:52 Order name: Regular EDMS 01/12 00:52 Order name: Basic Metabolic Panel EDMS 01/12 00:52 Order name: Basic Metabolic Panel EDMS 01/12 00:52 Order name: CBC with Automated Diff EDMS 01/12 00:52 Order name: CBC with Automated Diff EDMS 01/12 01:16 Order name: Urine --Ancillary (enter results) tt3 01/12 01:16 Order name: Urine Dipstick--Ancillary (enter results) tt3 01/12 01:33 Order name: Urine --Ancillary; Complete Time: 04:38 EDMS 01/12 01:33 Order name: Urine Dipstick-Ancillary; Complete Time: 04:38 EDMS 01/11 22:59 Order name: Cardiac monitoring; Complete Time: 00:01 cp 01/11 22:59 Order name: EKG - Nurse/Tech; Complete Time: 00:01 cp 01/11 22:59 Order name: IV Saline Lock - Large Bore; Complete Time: 00:01 cp 01/11 22:59 Order name: Labs collected and sent; Complete Time: 00:01 cp 01/11 22:59 Order name: O2 Per Protocol; Complete Time: 00:01 cp 01/11 22:59 Order name: O2 Sat Monitoring; Complete Time: 00:01 cp 01/11 22:59 Order name: Urine Dipstick-Ancillary (obtain specimen); Complete Time: 01:20 cp 01/11 22:59 Order name: Urine Test (obtain specimen); Complete Time: 01:08 cp 01/11 22:59 Order name: Document PUI#; Complete Time: 00:01 cp 01/11 22:59 Order name: Droplet/Contact Precautions; Complete Time: 23:35 cp 01/11 22:59 Order name: Notify Health Dept [phone]/ ; Complete Time: 00:01 cp EC:01 Rate is 89 beats/min. Rhythm is regular. OH interval is normal. QRS interval is normal. cp QT interval is normal. T waves are Flattened in lead aVL. Interpreted by me. Reviewed by me. Administered Medications: 00:01 Drug: NS 0.9% (30 ml/kg) 30 ml/kg Route: IV; Rate: bolus; Site: left antecubital; 01:20 Follow up: Response: No adverse reaction; IV Status: Completed infusion 01:08 Drug: LevaQUIN 750 mg Volume: 150 ml; Route: IVPB; Infused Over: 90 mins; Site: left antecubital; 02:13 Follow up: Response: No adverse reaction; IV Status: Completed infusion Disposition: 04:38 Co-signature as Attending Physician, Jimmie Lucero MD. [email or web address] Disposition: 01/13/20 00:44 Hospitalization ordered by Omari Lee for Inpatient Admission. Preliminary diagnosis is Pneumonia due to other specified infectious organisms. - Bed requested for Telemetry/MedSurg (Inpatient). - Status is Inpatient Admission. - Condition is Stable. - Problem is new. - Symptoms have improved. Signatures: Dispatcher [employer] EDMS Dayton Waller PA PA cp Garcia, Cindy, RN RN Kong Valdivia Sweetie Redman RN RN Jimmie Lucero MD MD 7 Corrections: (The following items were deleted from the chart) 00:43 00:43 Normal except: GFR 77. cp cp 01:15 00:44 Hospitalization Ordered by Omari Lee MD for Inpatient Admission. Preliminary diagnosis is Pneumonia due to other specified infectious organisms. Bed requested for Telemetry/MedSurg (Inpatient). Status is Inpatient Admission. Condition is Stable. Problem is new. Symptoms have improved. cp 02:20 01:15 01/13/2020 00:44 Hospitalization Ordered by Omari Lee MD for Inpatient Admission. Preliminary diagnosis is Pneumonia due to other specified infectious organisms. Bed requested for Telemetry/MedSurg (Inpatient). Status is Inpatient Admission. Condition is Stable. Problem is new. Symptoms have improved. cg 11:53 11:51 Data reviewed: vital signs, nurses notes, lab test result(s), EKG, radiologic cp studies, plain films, I have discussed the patient's presentation/case with the attending Emergency Department Physician; and as a result, I will admit patient, cp 11:53 11:51 Test interpretation: by ED physician or midlevel provider: ECG, cp cp 11:53 11:51 Response to treatment: the patient's symptoms have mildly improved after cp treatment, cp
[2020-01-13] MEDS ORDERED: ACETAMINOPHEN 500 MG TAB PO PRN (00:50)
[2020-01-13] MEDS ORDERED: ONDANSETRON 4 MG/2 ML VIAL IV PRN (00:50)
[2020-01-13] MEDS ORDERED: Levofloxacin 750mg IV 750 MG/150 ML BAG IV ONE (01:10)
[2020-01-13 01:33] LABS: Urine Blood 3+ (NEG); Urine Glucose NEGATIVE (NEG); Urine Protein NEGATIVE (NEG)
[2020-01-13 01:45] LABS: Urine Bacteria <20 /HPF (<20); Urine Culture Reflex Order NOT NEEDED
[2020-01-13 02:39] VITALS: BMI 32.0
[2020-01-13] MEDS: ACETAMINOPHEN 500 MG TAB PO PRN (02:58)
[2020-01-13] MEDS: NA CHLORIDE 0.9% 250 ML IV PRN ×2 (02:58→03:40)
[2020-01-13] MEDS ORDERED: dexAMETHasone 10 MG/ML VIAL IV SCH (05:00)
--- NOTE | 2020-01-13 08:22 | RAD REPORT ---
EXAM DESCRIPTION: RAD - Chest Single View - 01/12/2020 11:44 pm CLINICAL HISTORY: Cough;SOB COMPARISON: January 09 TECHNIQUE: AP portable chest image was obtained 01/12/2020 11:44 pm . FINDINGS: Lung volumes are reduced compared to the prior study. Overlying breast soft tissue and brando ast implants exaggerate lung parenchyma. No acute lung parenchymal finding seen. No failure or volume overload. Heart and vasculature are normal. No measurable pleural effusion and no pneumothorax. No a cute bony abnormality seen. No acute aortic findings suspected. IMPRESSION: No acute cardiopulmonary process.
[2020-01-13] MEDS: ENOXAPARIN 40 MG/0.4 ML SQ SCH (09:41)
[2020-01-13] MEDS ORDERED: Levofloxacin500mg IV 500 MG/100 ML BAG IV SCH ×2 (10:00→21:00)
--- NOTE | 2020-01-13 11:21 | P.CNS ---
Date of Consult: 01/13/20 Reason for Consult: Fever hypotension Chief Complaint: Fever History of Present Illness: Patient is 34 years of age started having fever last Steph prior to that she had appendectomy was doing well till a week later she started developing some fever denies any pulmonary complaints no cough shortness of breath no abdominal complaints no diarrhea felt very weak was treated with steroids solis virus test as been repeatedly negative denies any chest pain orthopnea patient has been febrile here as not take any medication Allergies latex Allergy (Verified 01/05/12 12:39) Rash POWDER IN GLOVES Allergy (Uncoded 01/03/20 01:14) Rash Home Medications: NK [No Home Meds] 01/03/20 - Past Medical/Surgical History Diabetic: No -: narcolepsy -: anxiety -: 2 -: Tummy Tuck -: Breast Augmentation -: Appendectomy - Family History Mother Medical History: Hypertension, Diabetes Father Medical History: Hypertension, Diabetes - Social History Smoking Status: Unknown if ever smoked Alcohol use: No CD- Drugs: No Caffeine use: No Place of Residence: Home Review of Systems Unremarkable General: Weakness Physical Examination Temp Pulse Resp BP Pulse Ox 97.8 F 81 20 93/59 L 96 01/13/20 08:00 01/13/20 08:00 01/13/20 08:00 01/13/20 08:00 01/13/20 08:00 General: Alert, In no apparent distress, Oriented x3 Neck: Supple Respiratory: Clear to auscultation bilaterally Cardiovascular: No edema, Regular rate/rhythm Gastrointestinal: Normal bowel sounds, Soft and benign Laboratory Data (last 24 hrs) 01/12/20 23:35: WBC 6.8 D, Hgb 12.2, Hct 36.8, Plt Count 180 01/12/20 23:35: Sodium 138, Potassium 3.5, BUN 11, Creatinine 0.84, Glucose 102, Total Bilirubin 0.2, AST 21, ALT 24, Alkaline Phosphatase 93 01/12/20 23:35: PT 12.1, INR 1.03, APTT 23.9 L - Problems (1) Fever Current Visit: Yes Status: Acute Plan: Patient is 34 years of age has been having fever for the past 2 weeks prior to that she had an uncomplicated laparoscopic appendectomy developed fever I after that the solis virus test as been repeatedly negative her chest x-rays clear doubt solis virus infection agree with CT of the chest abdomen and pelvis labs review unremarkable pro calcitonin level is also negative D-dimer is normal witnessed fever in the hospital patient usually runs low blood pressure
--- NOTE | 2020-01-13 11:54 | RAD REPORT ---
EXAM DESCRIPTION: CT - Chest Abd Pelvis Wo Con - 01/13/2020 10:44 am CLINICAL HISTORY: fever COMPARISON: Chest Single View dated 01/12/2020 TECHNIQUE: During dynamic enhancement using 100 milliliters nonionic IV contrast, axial 5 millimeter thick images of the chest, abdomen and pelvis were obtained. Biphasic technique was utilized through the abdomen. No oral contrast administered. All CT scans are performed using dose optimization technique as appropriate and may include automated exposure control or mA/KV adjustment according to patient size. FINDINGS: Moderate-sized area of consolidation is present in the posterior right lung base. This is an area that is obscured and partially visualized by the liver on a portable examination. Air broncho grams are present. No cavitation or other complicating factor. Patient has a few additional small jono und-glass opacities present in the upper lung santana. A small focus is present in the inferior aspect of the right upper lobe near the minor fissure and small focus in the posterior mid left lower lobe. No pneumothorax or pleural effusion. No chest wall mass or abnormal axillary lymphadenopathy seen. Mediastinal and hilar regions show no mass or lymphadenopathy. No significant cardiac finding. Bila teral breast implants are in place. The liver, spleen and pancreas show no significant findings for noncontrast study. Gallbladder and b iliary tree are normal. Gallstones can be occult on CT imaging. No suspicion for an active gallbladde r process. No hydronephrosis. No obstructing or nonobstructing calculi. No adrenal abnormalities. No urinary bl adder abnormalities. Uterus and ovaries show no suspicious findings. No bladder abnormality. No dilated bowel loops or focal ball bowel wall thickening. No free air, free fluid or inflammatory stranding. No hernia, mass or bulky lymphadenopathy. No significant bone or vascular finding. IMPRESSION: Moderate-sized pneumonia in the posterior right lung base. Two minimal foci of additiona l infiltrates seen in the right upper lobe and left lower lobe, respectively. No cavitation or other complicating factor for the pneumonia. No associated pleural effusion. CT abdomen and pelvis imaging shows no significant or suspicious finding.
[2020-01-13] MEDS ORDERED: NA CHLORIDE 0.9% 1,000 ML IV SCH (12:00)
--- NOTE | 2020-01-13 12:18 | HP ---
Date of Admission: 01/13/2020 Chief Complaint: Fever, chills, feeling tired, body ache, cough, and shortness of breath. History Of Present Illness: This is a 34-year-old female patient, who was admitted to the hospital overnight for acute appendicitis problem and this was on January 02, 2020, she was admitted and on January 03, 2020, she had laparoscopic appendectomy surgery and she was discharged on that particular day after surgery. Her COVID-19 test, which was done during that hospital admission was negative. One week ago, which is on January 05, 2020, she started to have fever, so she called and talked to me on January 06, 2020 regarding her complaints of fever. She had no other complaints and we advised her to stay in isolation thinking about possibility of COVID and she was asked to get repeat COVID-19 test done, which she had it done through [facility] past weekend on Thursday, and on Thursday of this week, her result came back negative. I talked to her that day and she was still not feeling well, still continued to have fever and feeling tired. So, I did talk to Dr. Mane, who saw her next day and the patient had outpatient chest x-ray done, blood work, urinalysis and all the results came back unremarkable except chest x-ray showed some interstitial increased markings raising possibility of viral pneumonia and this was done this week on Thursday. The patient was made aware of those results. She was started on Z pack on Thursday, and after we looked at all the results, we started her on dexamethasone 6 mg daily for 5 days and so far she has taken 2 doses, 1 on Thursday, [address] Mane had evaluated her at office for postop visit and he did not have any concerns about any postoperative complication causing her fever problem. Last night, she contacted me and informed me that she was feeling worse instead of better. She was having fever with temperature going up to 102.7, having significant generalized weakness and body ache, fever, chills, dry cough, and feeling tired and short of breath walking around in her room. No vomiting, diarrhea, or urinary complaints. No loss of sense of smell or taste. She was asked to come to emergency room for evaluation. ER physician was notified with details, and after she was evaluated in ER, she was admitted to the hospital. During nighttime, nurse called me few times because her blood pressure was low. She already had received 2 L of IV fluid in the emergency room and I gave her another 500 cc of IV fluid bolus because her blood pressure was around 82 to 84 systolic. She was also given 1 dose of dexamethasone 6 mg IV. Early this morning, her COVID-19 test, which was done in emergency room last night came back negative, so her isolation was continued. When I saw her this morning, she reported that she was feeling better than yesterday. Medications: Takes azithromycin 250 mg p.o. daily and dexamethasone 6 mg p.o. daily. Allergies: TO LATEX. Review of Systems: Constitutional: As mentioned above. Respiratory: As mentioned above. All other systems reviewed and negative. Past Medical History: Significant for hyperlipidemia, hemangioma of liver, narcolepsy with cataplexy, obstructive sleep apnea, and anxiety. Past Surgical History: Breast augmentation, , and abdominoplasty. Laparoscopic appendectomy done on January 03, 2020. Family History: Significant for father and mother with hypertension and diabetes. Social History: Negative for smoking and alcohol use. Physical Examination: Vital Signs: This morning, temperature was 97.8. During nighttime, her temperature was 100.8. This morning, pulse 81, respiratory rate 20, blood pressure 93/59, oxygen saturation 96% on room air. Height 5 feet 2 inches, weight 175 pounds. General: Awake, alert, oriented, not in distress. HEENT: Head atraumatic, normocephalic. Conjunctivae nonerythematous. Sclerae white. Mouth, no thrush or edema noted. Ears/Nose, no mass, lesion, discharge noted. Neck: Supple. No JVD, lymph nodes, bruit, thyromegaly noted. Lungs: Bilateral good equal air entry. Clear to auscultation. No rhonchi. No rales. Heart: Normal heart sounds, no murmur or gallop. Abdomen: Soft, bowel sounds normal. No guarding, rigidity, tenderness, mass, hepatosplenomegaly, distention, or bruit noted. Extremities: No leg edema. No calf tenderness. Skin: No rash, ulcer, cellulitis. Lymphatics: No lymph node enlargement in neck, supraclavicular, infraclavicular region. Neuro: No focal neurological deficit. Chest: Unremarkable. External Genitalia: Deferred. Rectal: Deferred. Laboratory Data: White count 6.8, hemoglobin 12.2, platelets 180. INR 1.03. D-dimer 401. Sodium 138, potassium 3.5, chloride 104, bicarb 24, BUN 11, creatinine 0.84. Liver function tests unremarkable. Lactic acid 1.7. Procalcitonin less than 0.05. Urinalysis negative except 3+ blood. Urine test negative. Chest x-ray, no acute cardiopulmonary changes. Influenza A and B test negative. COVID-19 test negative and streptococcal screen negative. Impression: 1. Rule out COVID-19. 2. Fever. 3. Generalized weakness. 4. Volume depletion. Plan: The patient was admitted to the hospital after evaluation in emergency room. She is appropriate for inpatient and is expected to spend 2 midnights in hospital. We will go ahead and continue IV Levaquin and IV dexamethasone. Consult Dr. Gardner. I have contacted him and all the details were discussed with him about the patient's multiple negative COVID tests and last week's presentation and current symptoms. She has not required any oxygen supplement and maintaining adequate oxygenation on room air. I have ordered CAT scan of the chest, abdomen, and pelvis without contrast and we will review that information once available. Details and plan of treatment discussed with the patient and she was informed that even with negative COVID-19 test, my primary concern is COVID-19 infection and she understands that. Her abdominal exam is completely normal and surgical incision that she had from laparoscopic appendectomy has healed very well. JOY/ROSA Voice ID: [id number] CHALINO
[2020-01-13] MEDS: PIPER/TAZO/NS 3.375gm 3.375 GM/100 ML BAG IVPB SCH ×2 (12:56→18:03)
--- NOTE | 2020-01-13 15:25 | EKG ---
Test Date: 2020-01-12 Test Time: 23:50:06 Bellperson: SLICK MEASUREMENT RESULTS: Intervals: Rate: 89 AK: 184 QRSD: 86 QT: 362 QTc: 440 [place]: P: 70 AK: 184 QRS: 77 T: 66 INTERPRETIVE STATEMENTS: Sinus rhythm with fusion complexes Otherwise normal ECG Compared to ECG 05/18/2016 13:12:27 Fusion complex(es) now present Electronically Signed On 01-13-20 15:24:04 CDT by Donny Rose
[2020-01-13] MEDS: NA CHLORIDE 0.9% 1,000 ML IV SCH (18:03)
[2020-01-14] MEDS: ACETAMINOPHEN 500 MG TAB PO PRN ×4 (00:49→15:55)
[2020-01-14] MEDS: PIPER/TAZO/NS 3.375gm 3.375 GM/100 ML BAG IVPB SCH ×3 (00:50→16:49)
[2020-01-14 05:29] LABS: Absolute Lymphocytes (CBC) 1.4 K/uL (0.7-4.9); Basophils % 0.1 % (0-1.3); Hematocrit 30.4 % (36.0-45.0); Lymphocytes % 19.2 % (15.3-44.8); MPV 8.8 fL (7.6-11.3); RBC Red Blood Cell Count 3.62 M/uL (3.86-4.86)
[2020-01-14 05:50] LABS: BUN Blood Urea Nitrogen 7 mg/dL (7-18); Bicarbonate 23 mmol/L (21-32); Glucose Level 106 mg/dL (74-106); Potassium 3.6 mmol/L (3.5-5.1); Sodium Level 142 mmol/L (136-145)
[2020-01-14] MEDS: NA CHLORIDE 0.9% 1,000 ML IV SCH ×2 (07:10→15:48)
[2020-01-14] MEDS: Levofloxacin 750mg IV 750 MG/150 ML BAG IV SCH (08:47)
[2020-01-14] MEDS: ENOXAPARIN 40 MG/0.4 ML SQ SCH (08:52)
[2020-01-14] MEDS: GUAIFENESIN/DM 5 ML UCUP PO PRN ×2 (14:13→20:07)
[2020-01-14] MEDS: IBUPROFEN 400 MG TAB PO PRN ×2 (16:49→23:30)
[2020-01-14 18:51] LABS: Absolute Lymphocytes (CBC) 1.5 K/uL (0.7-4.9); Basophils % 0.1 % (0-1.3); Hematocrit 31.9 % (36.0-45.0); Lymphocytes % 20.6 % (15.3-44.8); MPV 8.2 fL (7.6-11.3); RBC Red Blood Cell Count 3.84 M/uL (3.86-4.86)
[2020-01-14 19:09] LABS: ALT/SGPT 21 U/L (12-78); AST/SGOT 18 U/L (15-37); Alkaline Phosphatase 75 U/L (45-117); BUN Blood Urea Nitrogen 7 mg/dL (7-18); Bicarbonate 20 mmol/L (21-32); Bilirubin Total 0.4 mg/dL (0.2-1.0); Glucose Level 109 mg/dL (74-106); Potassium 3.2 mmol/L (3.5-5.1); Protein, Total 7.1 g/dL (6.4-8.2); Sodium Level 140 mmol/L (136-145)
[2020-01-14] MEDS ORDERED: POTASSIUM CL SA 10 MEQ TAB PO ONE (19:10)
[2020-01-14] MEDS: ALBUTEROL 2.5 MG/3 ML NEB SOL NEB SCH (19:30)
[2020-01-14] MEDS ORDERED: DOXYCYCLINE HYCLATE 100MG INJ ONE (20:06)
[2020-01-14] MEDS ORDERED: NA CHLORIDE 0.9% 100 ML ONE (20:09)
[2020-01-14] MEDS: DOXYCYCLINE 100 MG in NA CHLORIDE 0.9% 100 ML IVPB SCH (20:10)
--- NOTE | 2020-01-14 20:19 | PN ---
Date of Progress Note: 01/14/2020 Subjective: The patient was seen this morning for followup. She still has fever as of this morning. When I saw her this morning, temperature had started to go up to 101.6. Overnight, her temperature was very good. During senior financial consultant hours, it was 99.2, but just before I saw her this morning, tem perature had gone up to 101.6. Besides dry cough, she does not have any other new complaints. No vo miting. No diarrhea. Appetite is still poor. She is able to go to the bathroom and come back witho ut getting short of breath. Objective: Vital Signs: Reviewed. HEENT: Unremarkable. Lungs: Clear to auscultation on the left side, right side rales present in lower 1/4th lung region. Not in any respiratory distress. Heart Sounds: Normal. Abdomen: Soft. Bowel sounds normal. No guarding, rigidity, tenderness, or distention. Extremities: No leg edema. Impression: Pneumonia, likely aspiration pneumonia. Plan: After I saw the patient this morning, we continued her Zosyn and as of this morning, we added Levaquin 750 mg IV piggyback daily. During later part of the day today, her temperature had started to go up, 101.9 and 101.8 and this was in spite of using Tylenol and Motrin, so I have repeated some blood work for her. Cough medication was ordered today and nebulizer treatment was ordered. CBC thi s evening; white count 7.3, hemoglobin 10.7, platelets 176, and her lactic acid level 1.2. Procalcit onin less than 0.05. Chemistry unremarkable, except potassium 3.2. Chest x-ray pending. We will co ntinue current medication, antibiotics, Levaquin and Zosyn. I have discussed details with Dr. Angel hoover this evening about the patient's temperature spikes and doxycycline was added. I will see her tomorrow for followup, replace potassium per order. JOY/MODL Voice ID: [id number] Report ID: [id number]
[2020-01-14] MEDS ORDERED: ONDANSETRON 4 MG/2 ML VIAL IV PRN (21:00)
--- NOTE | 2020-01-14 21:25 | RAD REPORT ---
EXAM DESCRIPTION: RAD - Chest Pa And Lat (2 Views) - 01/14/2020 6:18 pm CLINICAL HISTORY: pneumonia, history of multiple negative COVID tests COMPARISON: CT chest January 12, portable chest January 11 TECHNIQUE: Frontal and lateral views of the chest were obtained. FINDINGS: The lungs are underinflated. Small patchy pneumonia seen in the upper lung santana, detaile d on the CT chest, are nonprogressive. Posterior medial right lung base pneumonia is mostly concealed of the right hemidiaphragm. No suspicion for enlargement. No pulmonary edema has developed. Heart size is normal and central vasculature is within normal limits. No pleural effusion or pneumot horax seen. No acute bony finding noted. No aortic abnormality. IMPRESSION: Pneumonia changes are present not substantially different from prior imaging. No volume overload or pulmonary edema findings.
[2020-01-15] MEDS: PIPER/TAZO/NS 3.375gm 3.375 GM/100 ML BAG IVPB SCH ×3 (00:48→09:00)
[2020-01-15] MEDS: ACETAMINOPHEN 500 MG TAB PO PRN ×4 (00:57→16:33)
[2020-01-15] MEDS: ALBUTEROL 2.5 MG/3 ML NEB SOL NEB SCH ×4 (01:40→20:00)
[2020-01-15 06:15] LABS: Absolute Lymphocytes (CBC) 1.4 K/uL (0.7-4.9); Basophils % 0.1 % (0-1.3); Hematocrit 31.8 % (36.0-45.0); Lymphocytes % 17.1 % (15.3-44.8); MPV 8.5 fL (7.6-11.3); RBC Red Blood Cell Count 3.77 M/uL (3.86-4.86)
[2020-01-15 06:25] LABS: BUN Blood Urea Nitrogen 8 mg/dL (7-18); Bicarbonate 22 mmol/L (21-32); Glucose Level 93 mg/dL (74-106); Magnesium 2.2 mg/dL (1.8-2.4); Potassium 3.9 mmol/L (3.5-5.1); Sodium Level 144 mmol/L (136-145)
[2020-01-15] MEDS: IBUPROFEN 400 MG TAB PO PRN ×2 (08:11→15:01)
[2020-01-15] MEDS: Levofloxacin 750mg IV 750 MG/150 ML BAG IV SCH (08:12)
[2020-01-15] MEDS: NA CHLORIDE 0.9% 1,000 ML IV SCH (08:12)
[2020-01-15] MEDS: ENOXAPARIN 40 MG/0.4 ML SQ SCH (08:15)
[2020-01-15] MEDS: DOXYCYCLINE 100 MG in NA CHLORIDE 0.9% 100 ML IVPB SCH (09:00)
[2020-01-15] MEDS ORDERED: VANCOMYCIN/NS 1 gm 1 GM/250 ML BAG IVPB SCH (09:45)
[2020-01-15] MEDS ORDERED: VANCOMYCIN 1.5 GM in NA CHLORIDE 0.9% 500 ML IV SCH (11:00)
[2020-01-15] MEDS ORDERED: Meropenem 1000 MG/VIAL IV SCH (12:00)
[2020-01-15] MEDS: VANCOMYCIN 1.5 GM in NA CHLORIDE 0.9% 500 ML IV SCH ×2 (12:30→23:00)
--- NOTE | 2020-01-15 13:01 | P.PN ---
Subjective Date of Service: 01/15/20 Chief Complaint: Fever Patient is still running a fever she had fever all day yesterday by broad- spectrum antibiotics negative blood cultures Review of Systems General: Weakness Respiratory: Shortness of Breath Physical Examination - Vital Signs Temperature: 99 F Blood Pressure: 116/63 Pulse: 105 Respirations: 20 Pulse Ox (%): 97 - Physical Exam General: Alert, Mild distress Respiratory: Clear to auscultation bilaterally Cardiovascular: No edema, Regular rate/rhythm - Studies Microbiology Data (last 24 hrs): 01/12/20 23:35 Throat Culture & Sensitivity - Final NORMAL UPPER RESPIRATORY [place] GROWN. 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
[2020-01-15] MEDS: predniSONE 20 MG TAB PO SCH ×2 (13:11→20:43)
--- NOTE | 2020-01-15 14:02 | PN ---
Date of Progress Note: 01/15/2020 Subjective: The patient was seen this morning for followup. I talked to her yesterday evening when her temperature had gone up and I also talked to Dr. Gardner and we added doxycycline. Overnight, h er temperature came down between 99-100 degrees Fahrenheit. This morning just before I walked in, he r temperature had gone up to 102 degrees Fahrenheit. When I saw her, she was feeling really bad patti use of fever, chills and body ache that she starts to have along with the fever and chills. No nause a. No vomiting. Objective: HEENT: Otherwise unremarkable. Lungs: Some rales noted in right lower lung field, unchanged from yesterday. Not using any accessor y muscles of respiration. Heart: Sounds normal. Abdomen: Soft. Bowel sounds normal. No guarding, rigidity, tenderness, or distention. Extremities: No leg edema. Laboratory Data: White count 8.5, hemoglobin 10.7, platelets 174. Sodium 144, potassium 3.9, chlori de 114, bicarb 22, BUN 8, creatinine 0.60, glucose 93, magnesium 2.2. Impression: 1.Pneumonia. 2.Hypokalemia. Yesterday's chest x-ray results show area of pneumonia unchanged compared to CT scan. Details were d iscussed with the patient. When I saw her, her was on the phone available and we talked abou t changing antibiotics. I will discontinue her Levaquin, Zosyn, and doxycycline and we will start he r on meropenem and vancomycin. So far, cultures are negative. Continue Tylenol and Motrin, Lovenox for DVT prophylaxis. Continue IV fluid per order and details were discussed with Dr. Gardner. We w ill follow up on her today as well. The patient's wanted to come to hospital and be with her to help her with her care and needs and after obtaining permission, we have notified the patient. Her will be allowed to assist with her. JOY/MODL Voice ID: [id number] Report ID: [id number]
[2020-01-15] MEDS: D5 0.45 NS 1,000 ML IV SCH (15:28)
[2020-01-15] MEDS: Meropenem 1,000 MG in NA CHLORIDE 0.9% 100 ML IV SCH ×2 (16:33→20:43)
[2020-01-15] MEDS: ALPRAZOLAM 0.25 MG TABLET PO SCH (20:43)
[2020-01-15] MEDS: GUAIFENESIN/DM 5 ML UCUP PO PRN (20:43)
[2020-01-16] MEDS: ALBUTEROL 2.5 MG/3 ML NEB SOL NEB SCH ×4 (01:29→20:00)
[2020-01-16] MEDS: D5 0.45 NS 1,000 ML IV SCH (03:57)
[2020-01-16] MEDS: predniSONE 20 MG TAB PO SCH ×2 (08:31→20:15)
[2020-01-16] MEDS: Meropenem 1,000 MG in NA CHLORIDE 0.9% 100 ML IV SCH ×2 (08:31→20:15)
[2020-01-16] MEDS: ENOXAPARIN 40 MG/0.4 ML SQ SCH (08:31)
[2020-01-16] MEDS ORDERED: D5 0.45 NS 1,000 ML IV SCH (09:27)
[2020-01-16] MEDS: GUAIFENESIN/DM 5 ML UCUP PO PRN ×2 (10:04→18:07)
[2020-01-16] MEDS: VANCOMYCIN 1.5 GM in NA CHLORIDE 0.9% 500 ML IV SCH (11:49)
--- NOTE | 2020-01-16 12:27 | P.PN ---
Subjective Date of Service: 01/16/20 Chief Complaint: Pneumonia Patient is feeling much better today no chest pain shortness of breath no fever recently Review of Systems General: Weakness Physical Examination - Vital Signs Temperature: 97.4 F Blood Pressure: 132/61 Pulse: 58 Respirations: 20 Pulse Ox (%): 97 - Physical Exam General: Alert, In no apparent distress, Oriented x3 Respiratory: Clear to auscultation bilaterally Cardiovascular: No edema, Normal pulses - Studies Microbiology Data (last 24 hrs): 01/12/20 23:35 Throat Culture & Sensitivity - Final NORMAL UPPER RESPIRATORY [place] GROWN. Assessment & Plan - Problems (Diagnosis) (1) Fever Current Visit: Yes Status: Acute Plan: Patient admitted with right lower lobe pneumonia she is currently doing much better continue with steroids plan to discharge home on prednisone 10 mg twice a day for a week also recommend p.o. 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
[2020-01-16] MEDS: ALPRAZOLAM 0.25 MG TABLET PO SCH (20:15)
[2020-01-17] MEDS: VANCOMYCIN 1.5 GM in NA CHLORIDE 0.9% 500 ML IV SCH (00:11)
[2020-01-17] MEDS: ALBUTEROL 2.5 MG/3 ML NEB SOL NEB SCH ×2 (02:00→08:00)
[2020-01-17] MEDS: Meropenem 1,000 MG in NA CHLORIDE 0.9% 100 ML IV SCH (08:15)
[2020-01-17] MEDS: predniSONE 20 MG TAB PO SCH (08:16)
[2020-01-17] MEDS: ENOXAPARIN 40 MG/0.4 ML SQ SCH (08:17)
--- NOTE | 2020-01-17 08:34 | PN ---
Date of Progress Note: 01/16/2020 Subjective: The patient was seen this morning for followup. She was lying in bed. Her was with her at bedside. She is feeling a lot better since her temperature came down after we change ant ibiotics yesterday and Dr. Gardner added some prednisone. Currently, she is on meropenem and vancom ycin. Overnight, she remained afebrile and feeling much better this morning. Denies any complaints. Objective: Vital Signs: Reviewed. HEENT: Unremarkable. Lungs: Some rales noted in right basal region, overall much better than before. Not in respiratory distress. Heart: Heart sounds normal. Abdomen: Soft. Bowel sounds normal. No guarding, rigidity, tenderness, or distention. Extremities: No leg edema. Impression: 1.Aspiration pneumonia. 2.Hypokalemia. Plan: We will go ahead and continue current medications. Continue current antibiotic, which is ghazal penem and vancomycin IV for another 24 hours. I will see her tomorrow for followup. If she continue s to feel well and remains afebrile, then we will plan to discharge her to go home tomorrow with oral antibiotics. Details were discussed with her. JOY/MODL Voice ID: [id number] Report ID: [id number]
[2020-01-17 10:42] VITALS: O2SAT 97
[2020-01-17] MEDS ORDERED: VANCOMYCIN 1.75 GM in NA CHLORIDE 0.9% 500 ML IV SCH (11:00)
[2020-01-17 12:03] VITALS: BP 118/70; TEMP 97.4
--- NOTE | 2020-01-18 04:17 | DS ---
Date of Discharge: 01/17/2020 Disposition: Discharged to go home. Physical Examination: HEENT: Unremarkable. Lungs: Bilateral good equal air entry, not in respiratory distress. Minimum basal rales in the right lung base present. Heart: Sounds normal. Abdomen: Soft. Bowel sounds normal. No guarding, rigidity, tenderness, or distention. Extremities: No leg edema. Discharge Diagnoses: 1. Aspiration pneumonia. 2. Anemia. 3. Hypokalemia. Discharge Medications And Instructions: 1. Levaquin 500 mg daily for 1 week, doxycycline 100 mg twice a day for 1 week, prednisone 10 mg tablet, the patient to take 2 tablets daily for 4 days, then 1 tab daily for 4 days, then 1/2 tablet daily for 4 days, then stop. 2. Follow up at my office in 1 week. Labs Done During This Hospitalization: On 01/12/2020, white count 6.8, hemoglobin 12.2, platelets 180. Last CBC from 01/14, white count 8.5, hemoglobin 10.7, platelets 174. Last chemistry from 01/14, sodium 144, potassium 3.9, chloride 114, bicarb 22, BUN 8, creatinine 0.60, glucose 93. Procalcitonin less than 0.05. Lowest potassium was 3.2 on 01/14/2020. Hospital Course: This is a 34-year-old pleasant female patient, who was admitted to the hospital with fever, shortness of breath, and cough. Please see dictated H and P for more information. The patient was evaluated in the ER, was admitted to the hospital. Chest x-ray did not reveal any acute changes. Her COVID-19 test, which was done in the emergency room, came back negative. She was started on empiric antibiotics and initially, we started her on Zosyn and the patient did not respond to that very well. So, we added Levaquin and she still continued to have fever and chills off and on, so Dr. Gardner was consulted. Her CAT scan of the chest, abdomen, pelvis done. Abdomen and pelvis were unremarkable. Chest showed multiple areas of pneumonia involving right upper lobe and bilateral lung bases. We definitely started having concern about aspiration pneumonia as one week ago, the patient had appendectomy surgery done and about 2-3 days after the surgery, she started to have these fever and chills, cough and shortness of breath type of problem. Her chest x-ray initially did show pneumonia type of finding was noted. Considering her not responding well to Zosyn, Levaquin, doxycycline, and having really bad episodes of fever with temperature spiking between 102 to 103, having bad chills, we discontinued all those antibiotics and started her on meropenem and vancomycin. Her response was significant and she became afebrile after this [address] Gardner added some prednisone. Overall, her condition has improved significantly and now almost in 48 hours, she has no fever and today she was discharged to go home in stable condition with above-mentioned medications and instructions. JOY/MODL Voice ID: [id number] Report ID: [id number] [place]
== END 2020-01-17 13:28 | disposition home or self-care (01) | DRG 179 ==
LOC: ER 22:42 → ERHOLD 01-13 01:00 → 4TH 01-13 01:48 → 2ND 01-13 07:45
PROVIDERS: ADMIT Internal Medicine; ATTEND Internal Medicine
PROC: 8E0ZXY6 Isolation (ICD-10-PCS; principal; 2020-01-13)
DX: J69.0 Pneumonitis due to inhalation of food and vomit (principal); E78.5 Hyperlipidemia, unspecified; E86.9 Volume depletion, unspecified; D64.9 Anemia, unspecified; E87.6 Hypokalemia; Z90.49 Acquired absence of other specified parts of digestive tract; Z91.040 Latex allergy status; Z20.828 Contact with and (suspected) exposure to other viral communicable diseases; R50.9 Fever, unspecified; R05 Cough
CPT/HCPCS: 36415; 71045; 71046; 71250; 74176; 80048; 80053; 80076; 80202; 81003; 81015; 81025; 82550; 82947; 83605; 83735; 84145; 84484; 85025; 85379; 85610; 85730; 87040; 87070; 87081; 87804; 93005; 94640; 94760; 96365; 99285; J1100; J1650; J2185; J2405; J2543; J3370; J7030; J7040; J7050; J7512; J7799; U0002